=== PATIENT | male | born 1955 | race Caucasian/White ===

== ENCOUNTER 2023-03-28 21:12 | Emergency (ER) | payer MEDICARE, SELFPAY ==
--- NOTE | ~2023-03-28 | CT_ITS ---
EXAMINATION: CT BRAIN W/O DATE: 03/28/2023 21:20 INDICATION: Arm numbness. TECHNIQUE: Computed tomography (CT) of the head was performed without intravenous contrast. The dose- length product was 605.33 mGy-cm. Automated exposure control and iterative reconstruction technique w ere employed. COMPARISON: No prior studies for comparison. FINDINGS: Normal brain parenchymal volume for age. Normal -white differentiation. No acute intrac ranial hemorrhage, infarction, mass or mass effect. No ventriculomegaly or midline shift. Midline sagittal images demonstrate a normal corpus callosum, c raniovertebral junction and sella turcica. Basilar cisterns are patent. Paranasal sinuses and mastoids are pneumatized. No depressed skull fractures. IMPRESSION: 1. No acute intracranial abnormality. As per stroke protocol, I called these results to emergency room, discussed with MARIA D Hale at 03/28/2023 21:23 CDT. Reviewed, dictated and finalized at location A. IMPRESSION: 1. No acute intracranial abnormality. As per stroke protocol, I called these results to emergency room, discussed wit h MARIA D Hale at 03/28/2023 21:23 CDT.
--- NOTE | ~2023-03-28 | XR_ITS ---
XR chest 1V portable 03/28/2023 21:43 Indication: Code stroke. Arm numbness. Procedure: AP portable chest Comparison: No prior studies for comparison. Findings: Heart size normal. Diffuse bilateral airspace disease, consistent with edema. No pleural ef fusion or pneumothorax. No acute osseous abnormality. Impression: 1: Diffuse bilateral airspace disease which may represent edema or pneumonia. Reviewed, dictated and finalized at location A. Impression: 1: Diffuse bilateral airspace disease which may represent edema or pneumonia.
--- NOTE | 2023-03-28 21:14 | ECG_ITS ---
Measurements Intervals [place] Rate: 73 P: 32 MN: 145 QRS: 0 QRSD: 106 T: 39 QT: 380 QTc: 419 Interpretive Statements SINUS RHYTHM POSSIBLE INFERIOR MYOCARDIAL INFARCTION , PROBABLY OLD [30 ms Q WAVE IN II/aVF] NO PREVIOUS ECG AVAILABLE FOR COMPARISON Electronically Signed On 03-29-2023 11:27:04 CDT by Shania Epperson M.D.
[2023-03-28 21:15] VITALS: BP 185/91; PULSE 71; RESP 12; TEMP 36.8; O2SAT 97
[2023-03-28 21:31] VITALS: BP 202/96; PULSE 74; RESP 19; O2SAT 98
--- NOTE | 2023-03-28 21:39 | ED.NEUROSD ---
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 Patient called 911. Patient reports the symptoms started within 1 hour prior to arrival to the emergency room. History of hypertension. Patient denies antiplatelet or anticoagulant medication. Patient came without family member. Or significant other. Related Data Home Medications Medication Instructions Recorded Confirmed amlodipine 5 mg tablet mg 03/28/23 enalapril maleate-felodipine 03/28/23 tamsulosin 0.4 mg capsule mg PO 03/28/23 Allergies Allergy/AdvReac Type Severity Reaction Status Date / Time No Known Allergies Allergy Verified 03/28/23 21:56 Review of Systems Review of Systems: All systems reviewed & are unremarkable except as noted in HPI and below Exam Narrative: General appearance: Well-developed, well-nourished Skin: Normal color Head: Normocephalic, nontraumatic Eyes: Clear conjunctiva ENT: Oropharynx normal, ears normal, nose normal Neck: Supple, nontender Chest and respiratory: Airway patent, no respiratory distress, no accessory muscle use Heart: Regular rate/rhythm Abdomen: Soft, nontender, no organomegaly, quiet bowel sounds Vascular: Normal peripheral pulses, normal capillary refill. Musculoskeletal: Weakness right upper and right lower extremity Neurologic: Alert and oriented ?3, right facial drooping, weakness right upper and right lower extremity 3/5 Course Consultations Consultation #1: Dr. Bonilla/neurologist at [facility] agreed with the plan of tPA and transfer Date: 03/28/23 Time: 21:57 Consultation #2: Dr stevenson/ED of [facility] Date: 03/28/23 Time: 21:59 Vital Signs Vital signs: Vital Signs Temperature 36.8 C 03/28/23 21:15 Pulse Rate 71 03/28/23 21:15 Respiratory Rate 12 03/28/23 21:15 Blood Pressure 185/91 H 03/28/23 21:15 Pulse Oximetry 97 10/30/23 21:15 Oxygen Delivery Room Air 03/28/23 21:15 Temperature 36.8 C 03/28/23 21:15 Pulse Rate 73 03/28/23 21:59 Respiratory Rate 24 H 03/28/23 21:59 Blood Pressure 173/93 H 03/28/23 21:59 Pulse Oximetry 96 03/28/23 21:59 Oxygen Delivery Room Air 03/28/23 21:15 MDM - Neuro Symptoms/Deficit MDM Narrative Medical decision making narrative: Patient presents with stroke symptoms Physical examination as above Vital signs, with blood pressure 185/91, later 202/110. Differential diagnosis acute CVA, ischemic versus hemorrhagic, hypoglycemia. Stroke scale is 9 Last time was seen normal within 1 hour prior to arrival Patient is not on antiplatelet or anticoagulant medication, the plan to reduce blood pressure and start patient on tPA as soon as possible tPA protocol was explained to the patient and the advantage and disadvantage, he agreed to start tPA as soon as possible and inspite of can cause bleeding anywhere in the body including the brain and can cause . CT head showed no acute abnormalities CTA head and neck ordered, patient will fly to [facility] as soon as possible. Differential Diagnosis Differential diagnosis: Likely cerebrovascular accident Medical Records Attestation: I reviewed the patient's medical records. Lab Data Att
[2023-03-28 21:42] LABS: Basophils Percent Auto 0.3 % (0.2-1.2); Eosinophils Absolute Auto 0.5 K/mm3 (0-0.3); Eosinophils Percent Auto 5.6 % (0-4.4); Hematocrit 45.7 % (42.0-52.0); Hemoglobin 15.3 g/dL (14.0-18.0); Immature Granulocyte Absolute 0.02 K/mm3 (0.00-0.031); Immature Granulocyte Percent A 0.2 % (0-0.5); Lymphocytes Absolute Auto 2.88 K/mm3 (0.9-3.2); Lymphocytes Percent Auto 32.4 % (18.3-44.2); Mean Corpuscular HGB Conc 33.5 g/dl (32-36); Mean Corpuscular Volume 92.7 fl (80-100); Mean Platelet Volume 10.1 fl (7.4-10.4); Monocytes Absolute Auto 0.6 K/mm3 (0.1-0.6); Neutrophils Absolute Auto 4.8 K/mm3 (1.3-6.7); Neutrophils Percent Auto 54.5 % (45.5-73.1); Platelet Count Result 300 k/mm3 (150-375); Red Blood Count 4.93 M/mm3 (4.6-6.20); Red Cell Distribution Width 13.2 % (11.5-14.5); White Blood Count 8.9 K/mm3 (4.5-10.0)
[2023-03-28] MEDS: LABETALOL HCL INJ 100 MG/20 ML VIAL 20 MG IV PUSH (21:43)
[2023-03-28 21:52] LABS: Alanine Aminotransferase 15 U/L (6-50); Albumin Level 4.4 g/dL (3.5-5.1); Alkaline Phosphatase 93 U/L (38-126); Anion Gap 10 mmol/L (8-16); Aspartate Amino Transferase 27 U/L (17-59); Bilirubin,Total 0.5 mg/dL (0.2-1.3); Blood Urea Nitrogen 14 mg/dL (9-20); Calcium 8.9 mg/dL (8.4-10.2); Carbon Dioxide 22 mmol/L (22-30); Chloride 108 mmol/L (98-107); Estimated CRCL calculation 73 ml/min; Estimated Glomerular Filt Rate > 60; Glucose 130 mg/dL (65-110); Potassium 3.7 mmol/L (3.4-5.0); Sodium 140 mmol/L (137-145)
[2023-03-28 21:53] LABS: INR 0.9; Prothrombin Time 12.9 Seconds (11.1-14.7)
[2023-03-28 21:54] LABS: Partial Thromboplastin Time 28.1 SECONDS (22.3-36.8)
[2023-03-28 21:59] VITALS: BP 173/93; PULSE 73; RESP 24; O2SAT 96
--- NOTE | 2023-03-28 22:02 | PC.NURSE ---
TPA infusion initiated by Anatoly MONSON.
[2023-03-28 22:03] LABS: Troponin I < 0.012 ng/mL (0.000-0.034)
--- NOTE | 2023-03-28 23:32 | PC.NURSE ---
Morphine, nicardipine, and Zofran not given as to not delay transport to [facility].
[2023-03-29 07:30] LABS: Glucose Point of Care 134 mg/dl (65-105)
== END 2023-03-28 22:16 | disposition short-term general hospital (02) ==
PROVIDERS: Emergency Provider Emergency Medicine
DX: I63.9 Cerebral infarction, unspecified (principal); R29.709 NIHSS score 9; R91.8 Other nonspecific abnormal finding of lung field; R94.31 Abnormal electrocardiogram [ECG] [EKG]
CPT/HCPCS: 36415; 37195; 70450; 71045; 80053; 82948; 84484; 85025; 85610; 85730; 93005; 96374; 99285